=== PATIENT | male | born 1950 | race Caucasian/White ===

== ENCOUNTER 2019-01-09 17:48 | Emergency (ER) | payer MEDICARE ==
[2019-01-09 18:18] LABS: #Basophils 0.1 thou/uL (0.0-0.2); #Eosinphils 0.3 thou/uL (0.0-0.7); #Lymphocytes 2.2 thou/uL (1.20-3.40); #Monocytes 0.6 thou/uL (0.11-0.59); #Neutrophils 3.4 thou/uL (1.40-6.50); %Basophils 1.4 % (0.0-1.0); %Eosinophils 5.1 % (0.0-10.0); %Lymphocytes 33.7 % (21.0-51.0); %Monocytes 9.2 % (0.0-10.0); %Neutrophils 50.6 % (42.0-75.0); Hemoglobin 13.8 g/dL (14.0-18.0); Mean Corpuscular HGB CONC 33.5 g/dL (32.0-36.0); Mean Corpuscular Hemoglobin 32.3 pg (27.0-31.0); Mean Corpuscular Volume 96.5 fL (78.0-98.0); Mean Platelet Volume 6.3 fL (7.4-10.4); Platelet Count 321 thou/uL (130-400); RBC Distribution Width 11.9 % (11.5-14.5); Red Blood Cell (RBC) Count 4.28 mill/uL (4.70-6.10); White Blood Cell (WBC) Count 6.6 thou/uL (4.8-10.8)
[2019-01-09 18:33] LABS: ALT (SGPT) 34 U/L (8-55); AST (SGOT) 27 U/L (5-34); Albumin 4.3 g/dL (3.4-4.8); Alkaline Phosphatase 58 U/L (40-150); Anion Gap 14 mmol/L (10-20); BUN (Urea Nitrogen) 7 mg/dL (8.4-25.7); Bilirubin, Total 0.4 mg/dL (0.2-1.2); CK (CPK) 123 U/L (30-200); Calc. Creatinine Clearance 0 mL/min (70-130); Calcium 9.2 mg/dL (7.8-10.44); Carbon Dioxide 21 mmol/L (23-31); Chloride 99 mmol/L (98-107); Estimated GFR-MDRD Greater than 90; Globulin 2.7 g/dL (2.4-3.5); Glucose 116 mg/dL (80-115); Lipase 20 U/L (8-78); Potassium 3.3 mmol/L (3.5-5.1); Sodium 131 mmol/L (136-145)
--- NOTE | 2019-01-09 19:01 | RAD ---
CHEST ONE VIEW 01/09/19 HISTORY: Left sided chest pain and shoulder pain. The heart size and mediastinum are within normal limits. There are atherosclerotic changes of the aor ta. The lungs are clear of infiltrates. There are no significant bony findings. IMPRESSION: No active intrathoracic disease. POS: [facility]
[2019-01-09] MEDS ORDERED: Ketorolac Tromethamine 60 MG/2 ML VIAL ONE (20:31)
== END 2019-01-09 20:55 | disposition home or self-care (01) ==
LOC: ERS 17:48
DX: S43.402A Unspecified sprain of left shoulder joint, initial encounter (principal); I10 Essential (primary) hypertension; J45.909 Unspecified asthma, uncomplicated; E78.00 Pure hypercholesterolemia, unspecified; K21.9 Gastro-esophageal reflux disease without esophagitis; M19.90 Unspecified osteoarthritis, unspecified site; Z79.899 Other long term (current) drug therapy; Z79.82 Long term (current) use of aspirin; X58.XXXA Exposure to other specified factors, initial encounter
CPT/HCPCS: 36415; 71045; 80053; 82550; 83690; 84484; 85025; 93005; 94760; 96372; J1885

== ENCOUNTER 2021-09-15 09:24 | Outpatient (CLI) | payer MEDICARE | END 2021-09-15 09:25 | disposition home or self-care (01) | LOC: NM 09:24 | PROVIDERS: ATTEND Family Medicine | DX: S00-T88 Injury, poisoning and certain other consequences of external causes (principal); M25.462 Effusion, left knee; Z96.652 Presence of left artificial knee joint; M15.9 Polyosteoarthritis, unspecified | CPT/HCPCS: 78315; A9503 ==